=== PATIENT | female | born 1985 | race Caucasian/White ===

== ENCOUNTER 2021-05-17 23:58 | Emergency (ER) | payer MEDICAID ==
[~2021-05-17] VITALS: Ht 170.2 cm; Wt 81.8 kg
[2021-05-18 00:38] LABS: BASOPHILS # (AUTO) 0.2 X10'3 (0-0.2); BASOPHILS % (AUTO) 1.6 % (0-1); EOSINOPHILS # (AUTO) 0.3 X10'3 (0-0.9); HEMATOCRIT 41.9 % (35.0-45.0); HEMOGLOBIN 14.8 g/dl (12.0-16.0); LYMPHOCYTES % (AUTO) 21.8 % (21-51); MEAN CORPUSCULAR HEMOGLOBIN 37.6 PG (27.0-31.0); MEAN CORPUSCULAR HGB CONC 35.4 g/dL (33.0-36.5); MEAN CORPUSCULAR VOLUME 106.2 FL (78-98); MEAN PLATELET VOLUME 8.1 FL (7.4-10.4); MONOCYTES # (AUTO) 0.7 X10'3 (0-0.9); MONOCYTES % (AUTO) 4.8 % (2-12); NEUTROPHILS # (AUTO) 9.6 X10'3 (1.8-7.7); NEUTROPHILS % (AUTO) 69.8 % (42-75); PLATELET COUNT 230 X10'3 (140-440); RED BLOOD COUNT 3.95 X10'6 (4.20-5.60); RED CELL DISTRIBUTION WIDTH 12.2 % (11.5-14.5); WHITE BLOOD COUNT 13.7 X10'3 (4.5-11.0)
[2021-05-18 00:52] LABS: ALANINE AMINOTRANSFERASE 26 U/L (12-78); ALBUMIN 4.1 G/DL (3.4-5.0); ALBUMIN/GLOBULIN RATIO 1.2 (1.1-1.5); ALKALINE PHOSPHATASE 105 IU/L (46-116); AMYLASE 56 U/L (25-115); ANION GAP 12 (8-16); ASPARTATE AMINO TRANSFERASE 14 U/L (10-37); BILIRUBIN,TOTAL 0.4 MG/DL (0.1-1.0); BLOOD UREA NITROGEN 13 MG/DL (7-18); BUN/CREATININE RATIO 14.9 (6.6-38.0); CALCIUM 9.1 MG/DL (8.5-10.1); CHLORIDE 104 MMOL/L (99-107); CREATININE 0.87 MG/DL (0.40-0.90); GLUCOSE 83 MG/DL (70-104); LIPASE 161 U/L (73-393); POTASSIUM 3.7 MMOL/L (3.5-5.1); SODIUM 141 MMOL/L (135-145); TOTAL PROTEIN 7.5 G/DL (6.4-8.2); eGFR 73 ML/MIN
[2021-05-18 02:09] LABS: URINE HCG NEGATIVE (NEG)
[2021-05-18 02:13] LABS: CLARITY,URINE CLEAR (Clear); COLOR,URINE YELLOW (Yellow); GLUCOSE, URINE NEGATIVE (Neg); KETONES,URINE NEGATIVE (Neg); LEUKOCYTE ESTERASE ,URINE NEGATIVE (Neg); NITRITES, URINE NEGATIVE (Neg); OCCULT BLOOD,URINE NEGATIVE (Neg); PROTEIN,URINE NEGATIVE (Neg); UA COLLECTION TYPE CLN CATCH MIDSTREAM
[2021-05-18] MEDS ORDERED: iohexol 300mg/ml 100ml inj. ONE (02:30)
[2021-05-18] MEDS ORDERED: famotidine/PF 10 mg/ml inj IV ONE (03:55)
[2021-05-18] MEDS ORDERED: ketorolac trometh. 30mg/ml inj. IV ONE (04:10)
--- NOTE | 2021-05-18 04:35 | NUR ---
us at bedside
[2021-05-18] MEDS ORDERED: NAPR-56 PO (05:12)
[2021-05-18] MEDS ORDERED: ONDA4TAB12 PO (05:12)
[2021-05-18 05:39] VITALS: BP 114/78
== END 2021-05-18 05:41 | disposition home or self-care (01) ==
LOC: ER 23:59
DX: N83.201 Unspecified ovarian cyst, right side (principal); R10.10 Upper abdominal pain, unspecified; R11.0 Nausea; Z90.710 Acquired absence of both cervix and uterus; Z98.890 Other specified postprocedural states; Z88.2 Allergy status to sulfonamides; Z88.8 Allergy status to other drugs, medicaments and biological substances; Z79.899 Other long term (current) drug therapy
CPT/HCPCS: 36415; 74177; 76700; 76856; 80053; 81003; 81025; 82150; 83690; 85025; 93976; 96374; 96375; 99285; J1885; J3490; Q9967